=== PATIENT | female | born 1965 | race Caucasian/White ===

== ENCOUNTER 2024-12-24 06:59 | Inpatient (IN) | payer OTHER, SELFPAY ==
[2024-12-24] VITALS (10 sets, daily range): BP systolic 127–198; BP diastolic 59–96; PULSE 63–78; RESP 14–21; TEMP 36.3–36.8; O2SAT 88–97; BMI 55.5
--- NOTE | ~2024-12-24 | XR_ITS ---
EXAMINATION: XR CHEST CLINICAL INFORMATION: SOB, cough, COPD COMPARISON: None available. TECHNIQUE: 2 frontal and one lateral radiograph. FINDINGS: Heart size is enlarged. Central vascular prominence. Interstitial prominence and hazy opacities in bilateral lower lungs. Possible small bilateral pleural effusions. No pneumothorax. Thoracic spine spondylosis. Overlying monitoring leads. XR/XR chest 2V IMPRESSION: Interstitial prominence and bibasilar hazy opacities, could reflect mild pulmonary edema or represent inflammatory/infectious process. Possible small bilateral pleural effusions. Electronically signed by: Asael Payne MD 12/24/2024 09:11 AM [facility]
--- NOTE | 2024-12-24 07:11 | ED_ITS ---
HPI - General Adult General Chief complaint: General Medical Stated complaint: whole body swollen Time Seen by Provider: 12/24/24 07:09 Source: patient, RN notes reviewed and old records reviewed Mode of arrival: ambulatory Limitations: no limitations History of Present Illness ED Provider: CHOLO Faye HPI narrative: 59-year-old female with medical history of COPD, HTN presents to the ED due to total body swelling and increased shortness of breath. Patient reports she has noticed her abdomen becoming bigger with a sensation of tightness in the abdomen over the last week, with facial swelling most significant around the eyes, and increased SOB over the last 3 days. Patient reports moving positions, and walking exacerbates her SOB, she has been needing to sleep upright at night due to her shortness of breath and discomfort while laying down. Patient reports a chronic cough however denies any increased coughing or increased sputum production. Patient reports she has not taken her HTN medication in over 1 year due to lack of health insurance. Patient reports she started a new job and is waiting for enrollment. Denies sick contacts, recent travel, fevers, chills, abdominal pain, nausea, vomiting, headaches, visual changes, diarrhea, black/tarry stool, urinary symptoms MD complaint: swelling, SOB Related Data Allergies Allergy/AdvReac Type Severity Reaction Status Date / Time No Known Allergies (No Known Allergy Verified 12/24/24 07:07 Allergies*) Review of Systems 2 Review of Systems: Yes all other systems are reviewed and are negative PMFSH Past Medical History Attestation statement: The following information was validated with the patient. Source: old records reviewed and nursing notes reviewed Social History Social History Smoked in Last 30 Days: Yes Use of substances other than those prescribed or required for medical reasons: Yes Substance Use Type: Marijuana Substance Use Frequency: Daily Last Used Substance: Hours (ago) Any prior treatment program specific to substance use: No Advance Directives: No Advance Directives Information Provided: Yes Patient : No Physical Exam ED Vital Signs: Vital Signs - 24 hr 12/24/24 07:03 12/24/24 07:24 12/24/24 07:54 Temperature 97.5 F Pulse Rate 73 72 71 Respiratory Rate 20 14 17 Blood Pressure 198/95 H 179/86 H Pulse Oximetry 90 L 94 Oxygen Delivery Method Room Air Nasal Cannula Oxygen Flow Rate 1 12/24/24 08:44 Temperature Pulse Rate Respiratory Rate Blood Pressure 179/86 H Pulse Oximetry Oxygen Delivery Method Oxygen Flow Rate BMI result Body Mass Index 55.5 GENERAL APPEARANCE: ?AxOx4, no acute distress. HEENT: ?NC, AT. MMM. EOMI, clear conjunctiva, oropharynx clear. NECK: ?Supple without lymphadenopathy.? No stiffness or restricted ROM. HEART:? Normal rate and regular rhythm, normal S1/S2, no m/r/g LUNGS:? Diminished breath sounds throughout all lung mcginnis, mild expiratory ronchi ABDOMEN: ?Soft, nontender, nondistended with good bowel sounds heard. BACK: No CVAT, no obvious deformity. EXTREMITIES: ?Without cyanosis, clubbing or edema. NEUROLOGICAL: ?Grossly nonfocal. Alert and oriented, moving all 4 extremities. Observed to ambulate with normal gait. Skin: ?Warm and dry without any rash. Medications Administered Discontinued Medications Generic Name Dose Route Start Last Admin Trade Name Freq PRN Reason Stop Dose Admin Albuterol/Ipratropium 3 ml 12/24/24 07:51 12/24/24 07:59 Albuterol/Iprat 2.5/0.5mg 3 Ml Ampul.Neb INHALE 12/24/24 07:52 3 ml ONCE ONE Administration Furosemide 40 mg 12/24/24 08:33 12/24/24 08:44 Furosemide 40 Mg/4 Ml Vial IVPUSH 12/24/24 08:34 40 mg ONCE ONE Administration Protocol Methylprednisolone Sodium Succinate 60 mg 12/24/24 08:00 12/24/24 08:21 Methylprednisolone Sod Succ 125 Mg/2 Ml Vial IVPUSH 12/24/24 08:01 60 mg ONCE ONE Administration Medical Decision Making Medical Decision Making MDM Narrative: 59-year-old female presenting with increased swelling of face, and abdomen, and increased shortness of breath over the last week. SOB is worse when changing positions, ambulating, and is unable to lie flat at night. Has baseline cough, no increased cough or increased sputum production. Has medical history of hypertension however has not had access to medication over the past year due to lack of health insurance. VS on initial observation-BP 188/95, pulse rate of 73, respiratory rate of 20, afebrile with oral temp of 97.5?, O2 saturation 90% on room air. On physical exam lungs with diminished breath sounds throughout all lung mcginnis, mild expiratory ronchi, no increased work of breathing, no accessory muscle use noted, cardiac exam reveals normal rate and rhythm without murmurs/rubs/gallops, abdomen is very large, and rotund, no fluid wave however there is evidence of edema, lower extremities without pitting edema however has chronic venous stasis skin changes without weeping or hydrostatic bullae - Patient was placed on 2 L NC O2 saturation now at 94% EKG reveals normal sinus rhythm, without significant ST-elevation/depression, initial troponin 25.1 Labs without leukocytosis/leukopenia left shift of 75.1, no evidence of anemia, H and H stable, pro BNP of 1837.7, TSH WNL. VBG with elevated HCO3. Differential Diagnosis Differential Diagnoses: The differential diagnosis associated with the presentation includes CHF exacerbation COPD exacerbation Dysrhythmia Viral illness Admission/Observation Consideration of admission/observation: Escalation of care including admission/observation considered Lab Data MDM Lab Attestation statement: I reviewed the patient's lab results. 12/24/24 07:37 12/24/24 07:37 Labs: Lab Results 12/24/24 12/24/24 12/24/24 Range/Units 07:37 07:42 08:47 WBC 7.8 (4.8-10.8) X10*3/uL RBC 4.32 (4.20-5.50) X10*6/uL Hgb 12.3 (12.0-16.0) g/dl Hct 41.3 (37.0-47.0) % MCV 95.6 (80.0-98.0) fL MCH 28.5 (27.0-33.0) pg MCHC 29.8 L (31.0-35.0) g/dl RDW 15.9 (11.0-16.0) % Plt Count 220 (160-400) X10*3/uL MPV 9.0 L (9.4-12.3) fL Immature Gran % (Auto) 0.4 (0.0-0.4) % Neut % (Auto) 75.1 H (45-73) % Lymph % (Auto) 15.2 L (20-40) % [place] % (Auto) 6.7 (2-11) % Eos % (Auto) 2.2 (0-4) % Baso % (Auto) 0.4 (0-2) % Lymph # (Auto) 1.2 (1.2-4.9) X10*3/uL [place] # (Auto) 0.5 (0.1-1.2) X10*3/uL Eos # (Auto) 0.2 (0.0-0.4) X10*3/uL Baso # (Auto) 0.0 (0.0-0.2) X10*3/uL Abs Immat Gran (auto) 0.03 (0.00-0.03) X10*3/uL Absolute Neuts (auto) 5.8 (2.0-8.3) x10*3/uL Absolute Nucleated RBC 0.000 (0.0-0.012) X10*3/uL Nucleated RBC % (auto) 0.0 (0.0-0.2) /100WBC VBG pH 7.39 (7.32-7.43) VBG pCO2 63 mmHg VBG pO2 48 mmHg VBG HCO3 39 H (22-26) mmol/L VBG O2 Saturation 75.0 % VBG Base Excess 11.5 mmol/L Sodium 144 (135-145) mmol/L Potassium 3.9 (3.3-5.1) mmol/L Chloride 103 (96-108) mmol/L Carbon Dioxide 33 H (22-29) mmol/L Anion Gap 12 (12-20) BUN 19 H (9-16) mg/dL Creatinine 0.75 (0.5-1.4) mg/dL Estim Creat Clear Calc 111.2 Estimated GFR > 60 Random Glucose 170 H (60-115) mg/dL Calcium 8.7 (8.4-10.2) mg/dL Magnesium 2.0 (1.6-2.6) mg/dL Total Bilirubin 0.5 (0.0-1.0) mg/dL AST 25 (5-31) U/L ALT 15 (0-31) U/L Alkaline Phosphatase 83 (39-117) U/L Troponin I High Sens 25.1 H (<3.5-17.0) ng/L NT-Pro-B Natriuret Pep 1837.7 H (<300) pg/mL Total Protein 7.0 (6.5-8.0) g/dL Albumin 3.4 L (3.5-5.0) g/dL TSH 2.01 (0.32-4.0) uIU/mL COVID-19 (JUVENTINO) Negative (Negative) COVID-19 Clin Com See Note Influenza Type A (LAUREN) Negative (Negative) Influenza Type B (LAUREN) Negative (Negative) Influenza A & B Note See Note Independent Interpretation I performed an independent interpretation of an: EKG Interpretation: I personally interpreted the EKG Discharge Plan Discharge Print Language: German
--- NOTE | 2024-12-24 07:23 | ECG_ITS ---
Test Reason : sob Blood Pressure : */* mmHG Vent. Rate : 72 BPM Atrial Rate : 72 BPM P-R Int : 174 ms QRS Dur : 82 ms QT Int : 376 ms P-R-T Axes : 52 -27 3 degrees QTcB Int : 411 ms Normal sinus rhythm Low voltage QRS Cannot rule out Anteroseptal infarct , age undetermined Abnormal ECG When compared with ECG of 09-Feb-2018 14:09, QRS axis Shifted left Minimal criteria for Anteroseptal infarct are now Present ST now depressed in Inferior leads Nonspecific T wave abnormality now evident in Lateral leads Referred By: Romeo Faye Electronically Signed By: JENNIFER MCDERMOTT MD
[2024-12-24 07:45] LABS: MANUAL DIFF FLAG NO; Venous Blood Gas Refer to POC result
[2024-12-24 07:46] LABS: VBG HCO3 39 mmol/L (22-26); VBG O2 % Saturation 75.0 %
[2024-12-24 07:48] LABS: Hematocrit 41.3 % (37.0-47.0); Hemoglobin 12.3 g/dl (12.0-16.0); Imm Gran Abs Auto 0.03 X10*3/uL (0.00-0.03); Imm Gran Pct Auto 0.4 % (0.0-0.4); Lymphocytes Absolute Auto 1.2 X10*3/uL (1.2-4.9); Mean Corpuscular HGB Conc 29.8 g/dl (31.0-35.0); Mean Corpuscular Hemoglobin 28.5 pg (27.0-33.0); Mean Corpuscular Volume 95.6 fL (80.0-98.0); NRBC Abs Auto 0.000 X10*3/uL (0.0-0.012); NRBC Pct Auto 0.0 /100WBC (0.0-0.2); Platelet Count 220 X10*3/uL (160-400); Red Blood Count 4.32 X10*6/uL (4.20-5.50); White Blood Count 7.8 X10*3/uL (4.8-10.8)
[2024-12-24] MEDS: Albuterol/Iprat 2.5/0.5MG 3 ML AMPUL.NEB INHALE (07:59)
[2024-12-24 08:00] LABS: Alanine Aminotransferase 15 U/L (0-31); Albumin Level 3.4 g/dL (3.5-5.0); Alkaline Phosphatase 83 U/L (39-117); Anion Gap 12 (12-20); Aspartate Amino Transferase 25 U/L (5-31); Blood Urea Nitrogen 19 mg/dL (9-16); Calcium 8.7 mg/dL (8.4-10.2); Carbon Dioxide 33 mmol/L (22-29); Chloride 103 mmol/L (96-108); Creatinine Clr Calc Pharmacy 111.2; Estimated Glomerular Filt Rate > 60; Magnesium 2.0 mg/dL (1.6-2.6); Potassium 3.9 mmol/L (3.3-5.1); Sodium 144 mmol/L (135-145); Total Protein 7.0 g/dL (6.5-8.0)
[2024-12-24 08:05] LABS: COVID-19 Test Negative (Negative); IDNOW Serial# 58CA691E
[2024-12-24 08:07] LABS: NT Pro B Type Natriuretic Pept 1837.7 pg/mL (<300)
[2024-12-24 08:08] LABS: IDNOW Serial# 55D5AD1C; Influenza B2 Negative (Negative)
[2024-12-24] MEDS: Furosemide 40 MG/4 ML VIAL IVPUSH ×2 (08:44→17:30)
--- OUTSIDE RECORDS SUMMARY | 2024-12-24 08:59 | XMS_ITS | Clinical Summary ---
Author Organization [facility] Address [address] [place] [address] Care Team Providers Care Lead Technologist In Cytogenetics Name Role Phone Mica Sanchez SONAM Primary Care Provider [phone] Source Comments PLEASE NOTE, if this patient is a minor, it may be UNLAWFUL to discuss sensitive information that is contained in these records (such as FAMILY PLANNING, MENTAL HEALTH or SUBSTANCE ABUSE) with the minor patient's parent or other person without the patient's specific authorization.[facility] Allergies No known active allergies Medications triamcinolone (KENALOG) 0.1 % ointmentIndicati ons:Dermatitis Apply topically 2 (two) times daily. 15 g 3 6 Active blood pressure monitorIndicatio ns:Essential hypertension DX . Uncontrolled blood pressure 1 Kit 0 6 Active ibuprofen (ADVIL,MOTRIN) 600 mg tabletIndication s:Cellulitis of lower extremity, unspecified laterality Take 1 Tab by mouth every 6 (six) hours as needed for pain 30 Tab 0 6 Active SENNA PLUS 8.6-50 mg per tabletIndication s:Constipation, unspecified constipation type Take 1 Tab by mouth once daily. 30 Tab 3 7 Active labetalol (NORMODYNE) 200 mg tabletIndication s:Essential hypertension Take 1 Tab by mouth 2 (two) times daily 60 Tab 5 8 Active amLODIPine (NORVASC) 10 mg tabletIndication s:Essential hypertension Take 1 Tab by mouth once daily 30 Tab 3 8 Active lisinopril (PRINIVIL,ZESTRI L) 40 mg tabletIndication s:Essential hypertension Take 1 Tab by mouth once daily 30 Tab 3 8 Active ondansetron HCl (ZOFRAN) 4 mg tabletIndication s:Nausea Take 1 Tab by mouth every 4 to 6 (four to six) hours as needed for nausea 15 Tab 8 Active omeprazole (PRILOSEC) [address] capsuleIndicatio ns:Gastroesophag eal reflux disease, esophagitis presence not specified Take 1 Cap by mouth every morning before breakfast Do not crush or chew. 30 Cap 3 9 Active Active Problems Problem Noted Date Diagnosed Date Obesity, Class II, BMI 35-39.9 12/14/2014 Essential hypertension 12/14/2014 Marijuana use 12/14/2014 Overview (12/14/2014): As per medical records from [facility] Resolved Problems Problem Noted Date Diagnosed Date Resolved Date Cellulitis of head except face 04/03/2017 05/17/2017 Cigar smoker unmotivated to quit 12/14/2014 05/17/2017 Immunizations Immunization Administration Dates Next Due PNEUMOCOCCAL POLYSACCHARIDE PPV23 (Pneumovax 23) 05/17/2017 TDAP 05/17/2017 Family History Medical History Relation Name Comments Heart Problems Brother Diabetes Father Heart Problems Mother Relation Name Status Comments Brother Father Mother Other Sister Social History Tobacco Use Types Packs/Day Years Used Date Smoking Tobacco: Every Day Cigarettes Smokeless Tobacco: Never Tobacco Cessation:Ready to Q uit: Yes; Counseling Given: Yes Comments:30 years smoking history Alcohol Use Standard Drinks/Week Comments Yes 0 (1 standard drink = 0.6 oz pur e alcohol) Occasional Social Connections Answer Date Recorded Social Connections and Isolation 0 10/05/2018 Financial Resource Strain Answer Date R ecorded Financial Resource Strain 0 2018 Stress Answer Date Recorded Stress 0 10/05/2018 Physical Activity Answer Date Recorded Physical Activity 0 10/05/2018 Food Insecurity Answer Date Recorded Food 0 10/05/2018 Transportation Needs Answer Date Record ed Transportation 0 10/05/2018 Housing Stability Answer Date Recorded Housing 0 10/05/2018 Safety and Environment Answer Date Leonard rded Safety 0 10/05/2018 Utilities Answer Date Recorded Utilities 0 10/05/2018 Employment Answer Date Recorded Employment 0 10/05/2018 Comments No Sex and Gender Information Value Date Recorded Sex Assigned at Female 04/03/2017 6:56 AM PST Legal Sex Female 11:14 AM PDT Gender Identity Female 04/03/2017 6:56 AM PST Sexual Orientation Don't know 04/03/2017 6: 56 AM PST Last Filed Vital Signs Vital Sign Reading Time Taken Comments Blood Pressure 148/96 12/16/2017 9:14 AM EST Pulse 99 12/16/2017 9:14 AM EST Temperature 36.5 C (97.7 F) 12/16/2017 9:14 AM EST Respiratory Rate 20 12/16/2017 9:14 AM EST Oxygen Saturation 95% 04/02/2017 10:29 AM EST Inhaled Oxygen Concentration - - Weight 106.1 kg (234 lb) 12/16/2017 9:14 AM EST Height 162.6 cm (5' 4 ) 05/30/2015 3:42 PM EDT Body Mass Index 40.17 05/30/2015 3:42 PM EDT Plan of Treatment Not on file Care Teams Lead Technologist In Cytogenetics Relationship Specialty Start Date End Date Mica Sanchez FNP [address] [place] [address] PCP - General Family Medicine, CONSULTATIVE SALES ASSOCIATE 10/07/15
--- OUTSIDE RECORDS SUMMARY | 2024-12-24 09:00 | XMS_ITS | Clinical Summary ---
Author Organization [facility] Address [address] [place] [address] Phone Care Team Providers Care Director Business Travel Name Role Phone Physician, Pcp Unknown Primary Care Provider [place] vailable Allergies No known active allergies Medications lisinopriL (PRINIVIL,ZESTR IL) 20 mg tablet Take 1 tablet (20 mg total) by mouth 1 (one) time each day. 30 each 5 Active albuterol HFA (PROAIR HFA ; PROVENTIL HFA ; VENTOLIN HFA) 90 mcg/actuation inhaler Inhale 2 puffs by mouth every 4 (four) hours if needed for wheezing. 1 each 5 Active fluticasone propion-salmete roL (ADVAIR DISKUS) 100-50 mcg/dose diskus inhaler Inhale 1 puff by mouth 2 (two) times a day. Rinse mouth with water after use to reduce aftertaste and incidence of candidiasis. Do not swallow. 1 each 5 05/28/19 26 Active Medical History Medical History Date Comments Hypertension Social History Tobacco Use Types Packs/Day Years Used Date Smoking Tobacco: Never Assessed Comments Unknown Sex and Gender Information Value Date Recorded Sex Assigned at Not on file Legal Sex Female 8:48 AM EST Gender Identity Not on file Sexual Orientation Not on file Obstetrics History Last Filed Vital Signs Vital Sign Reading Time Taken Comments Blood Pressure 189/85 05/27/2024 4:16 PM EDT Pulse 70 05/27/2024 4:16 PM EDT Temperature 36.4 C (97.5 F) 05/27/2024 4:16 PM EDT Respiratory Rate 20 05/27/2024 4:16 PM EDT Oxygen Saturation 95% 05/27/2024 4:16 PM EDT Inhaled Oxygen Concentration - - Weight 113 kg (250 lb) 05/27/2024 12:41 PM EDT Height 157.5 cm (5' 2 ) 05/27/2024 12:41 PM EDT Body Mass Index 45.73 05/27/2024 12:41 PM EDT Plan of Treatment Health Maintenance Due Date Last Done Comments Breast Cancer Screening 1965 Colorectal Cancer Screening: Colonoscopy 1965 Hepatitis B Vaccines (1 of 3 - 19+ 3-dose series) 11/21/1986 Cervical Cancer Screening: Pap Smear 11/21/1988 RSV Immunization Adult Patients (1 - Risk 50-74 years 1-dose series) 11/21/2017 Zoster Vaccines (1 of 2) 11/21/2017 Pneumococcal Vaccine: 50+ Years (2 of 2 - PCV) 05/17/2018 05/17/2017 HIV Screening 01/14/2022 Hepatitis C Screening 01/14/2022 Social Influencers of Health Screening 01/14/2022 Cholesterol Screening (Lipid Panel) 05/17/2022 05/17/2017 Depression Screening 02/12/2024 COVID-19 Vaccine ( season) 2024 01/30/2022, 01/16/2021, 06/22/2020, Additional history exists Influenza Vaccine (#1) 2024 Hypertension/CHF/CAD Annual BMP Blood Test 05/27/2025 05/27/2024 DTaP,Tdap,and Td Vaccines (2 - Td or Tdap) 05/18/2027 05/17/2017 HIB Vaccines Aged Out No longer eligi ble based on patient's age to complete this topic HPV Vaccines Aged Out No longer eligi ble based on patient's age to complete this topic Hepatitis A Vaccines Aged Out No long er eligible based on patient's age to complete this topic IPV Vaccines Aged Out No longer eligi ble based on patient's age to complete this topic MMR Vaccines Aged Out No longer eligi ble based on patient's age to complete this topic Meningococcal ACWY Vaccine Aged Out N o longer eligible based on patient's age to complete this topic Meningococcal B Vaccine Aged Out No l onger eligible based on patient's age to complete this topic RSV Immunization Patients Under 20 months Aged Out No longer eligible based on patient's age to complete this topic Varicella Vaccines Aged Out No longer eligible based on patient's age to complete this topic Procedures Procedure Name Priority Date/Time Associated Diagnosis Comments COMPREHENSIVE METABOLIC PANEL STAT 05/27/2024 1:02 PM EDT from Last 3 Months or Most Recently Relevant to Health Maintenance Results * Comprehensive metabolic panel (05/27/2024 1:02 PM EDT) Sodium 137 133 - 145 mmol/L LAB CHEMISTRY METHOD 05/27/2024 1:40 PM [facility] Potassium 3.8 3.5 - 5.5 mmol/L LAB CHEMISTRY METHOD 05/27/2024 1:40 PM [facility] Chloride 103 96 - 110 mmol/L LAB CHEMISTRY METHOD 05/27/2024 1:40 PM [facility] CO2 27 21 - 32 mmol/L LAB CHEMISTRY METHOD 05/27/2024 1:40 PM [facility] Anion Gap 7 3 - 11 LAB CHEMISTRY METHOD 05/27/2024 1:40 PM [facility] Glucose 87 70 - 100 mg/dL LAB CHEMISTRY METHOD 05/27/2024 1:40 PM [facility] BUN 25 5 - 25 mg/dL LAB CHEMISTRY METHOD 05/27/2024 1:40 PM [facility] Creatinine 0.81 0.50 - 1.10 mg/dL LAB CHEMISTRY METHOD 05/27/2024 1:40 PM [facility] eGFR 85 >=60 mL/min/1. 73m2 LAB CHEMISTRY METHOD 05/27/2024 1:40 PM [facility] Comment:Calculation based on the Chronic Kidney Disease Epidemiology Collaboration (CKD-EPI) equation refit without adjustment for race. BUN/Creatinine Ratio 30.9 LAB CHEMISTRY METHOD 05/27/2024 1:40 PM EDT [facility] Calcium 8.9 8.5 - 10.5 mg/dL LAB CHEMISTRY METHOD 05/27/2024 1:40 PM EDT [facility] AST (SGOT) 21 10 - 42 unit/L LAB CHEMISTRY METHOD 05/27/2024 1:40 PM T [facility] ALT (SGPT) 28 10 - 60 unit/L LAB CHEMISTRY METHOD 05/27/2024 1:40 PM EDT [facility] Alkaline Phosphatase 91 42 - 121 unit/L LAB CHEMISTRY METHOD 05/27/2024 1:40 PM EDT [facility] Total Protein 7.3 6.0 - 8.0 g/dL LAB CHEMISTRY METHOD 05/27/2024 1:40 PM EDT [facility] Albumin 3.2 3.2 - 5.0 g/dL LAB CHEMISTRY METHOD 05/27/2024 1:40 PM EDT [facility] Total Bilirubin 0.5 0.0 - 1.4 mg/dL LAB CHEMISTRY METHOD 05/27/2024 1:40 PM EDT [facility] Blood Venous blood specimen / Unknown Venipuncture / Unknown 05/27/2024 1:02 PM EDT 05/27/2024 1:09 PM EDT us Tre Mclaughlin MD LAB BLOOD ORDERABLES Final Result [facility] [address] [place] [address], from Last 3 Months or Most Recently Relevant to Health Maintenance Insurance MEDICAID - [place] Care Teams Director Business Travel Relationship Specialty Start Date End Date Physician, Pcp Unknown PCP - General 07/28/24
[2024-12-24 09:36] LABS: Troponin-I High Sensitivity 25.1 ng/L (<3.5-17.0)
[2024-12-24 11:10] LABS: Troponin-I High Sensitivity 28.5 ng/L (<3.5-17.0)
--- NOTE | 2024-12-24 12:04 | PHA.MEDREC ---
Pharmacy Consult ? Medication Reconciliation Pharmacy has completed the medication reconciliation. Spoke to patient at bedside, she takes no prescription or OTC meds.
--- NOTE | 2024-12-24 12:13 | P.HPHOSP_ITS ---
History of Present Illness Date of Service: 12/24/24 Attending physician on admission: Mi Riggs Chief Complaint: shortness of breath This is a 59 year old female with a history of hypertension who presents to the emergency department with shortness of breath. Patient reports 3 day history of shortness of breath especially with exertion. She has noticed abdominal swelling, leg edema and swelling of her face and around her eyes. She reports orthopnea and paroxysmal nocturnal dyspnea. She does have a dry cough. She denies any associated fever, chest pain, recent sick contacts or palpitations. In the emergency department she was noted to be hypoxic and was placed on 2 L nasal cannula with improvement of her oxygen saturation. Lab work was significant for elevated BNP at 1837. Troponins were elevated but flat at 25, 28. Chest x-ray showed concern for pulmonary edema with possible small bilateral pleural effusions. Patient was treated with IV ceftriaxone, IV Solu- Medrol as well as IV Lasix. She reports that she has urinated a large volume 3 times since receiving Lasix and her breathing is becoming less labored although she still feels short of breath with movement. She denies any known history of CHF. She does have a history of hypertension although she has not seen a primary care provider or taken any medication for her blood pressure in several years. Of note she reports being seen in [facility] ED 1 month ago at which time she was told she may have fluid issues and possibly COPD, but was not discharged home with any medication per her report. Review of Systems 2 Review of Systems: Yes all other systems are reviewed and are negative Constitutional: Constitutional: Denies chills and Denies fever(s) Cardiovascular: Cardiovascular: Denies chest pain, Denies palpitations, Reports dyspnea on exertion, Reports orthopnea and Reports paroxysmal nocturnal dyspnea Respiratory: Respiratory: Reports dyspnea on exertion Endocrine: Endocrine: Denies palpitations [facility] Medical History Hypertension Social History Smoked in Last 30 Days: Yes Use of substances other than those prescribed or required for medical reasons: Yes Substance Use Type: Marijuana Substance Use Frequency: Daily Last Used Substance: Hours (ago) Any prior treatment program specific to substance use: No Advance Directives: No Advance Directives Information Provided: Yes Patient : No Meds Allergies Allergy/AdvReac Type Severity Reaction Status Date / Time No Known Allergies (No Known Allergy Verified 12/24/24 07:07 Allergies*) Physical Exam 2 Vital Signs and Narrative: Vital Signs: Last Vital Signs Temp 98.2 F 12/24/24 10:38 Pulse 68 12/24/24 10:38 Resp 21 H 12/24/24 10:38 BP 173/95 H 12/24/24 10:38 Pulse Ox 96 12/24/24 10:38 O2 Del Method Room Air 12/24/24 10:38 O2 Flow Rate 1 12/24/24 10:38 BMI result Body Mass Index 55.5 Const: General: cooperative, alert and awake Nutritional Appearance: obese Orientation/consciousness: patient oriented x3 HEENT: Other: poor dentition Resp: Other: wheezing anterior lung mcginnis; diminished breath sounds b/l; mild tachypnea Cardio: Other: JVD difficult to assess due to body habitus GI: Inspection: No distended Palpation (GI): Soft to palpation Neuro: General: patient oriented x3, moves all extremities and CN's II-XI intact bilaterally Extrem: Other: b/l leg edema Results Labs 12/24/24 07:37 12/24/24 07:37 Labs: Laboratory Results - last 24 hr 12/24/24 12/24/24 12/24/24 07:37 07:42 08:47 MCV 95.6 MCH 28.5 MCHC 29.8 L RDW 15.9 Plt Count 220 MPV 9.0 L Immature Gran % (Auto) 0.4 Neut % (Auto) 75.1 H Lymph % (Auto) 15.2 L [place] % (Auto) 6.7 Eos % (Auto) 2.2 Baso % (Auto) 0.4 Lymph # (Auto) 1.2 [place] # (Auto) 0.5 Eos # (Auto) 0.2 Baso # (Auto) 0.0 Abs Immat Gran (auto) 0.03 Absolute Neuts (auto) 5.8 Absolute Nucleated RBC 0.000 Nucleated RBC % (auto) 0.0 VBG pH 7.39 VBG pCO2 63 VBG pO2 48 VBG HCO3 39 H VBG O2 Saturation 75.0 VBG Base Excess 11.5 Anion Gap 12 Estim Creat Clear Calc 111.2 Estimated GFR > 60 Random Glucose 170 H Lactic Acid Calcium 8.7 Magnesium 2.0 Total Bilirubin 0.5 AST 25 ALT 15 Alkaline Phosphatase 83 Troponin I High Sens 25.1 H NT-Pro-B Natriuret Pep 1837.7 H Total Protein 7.0 Albumin 3.4 L TSH 2.01 COVID-19 (JUVENTINO) Negative COVID-19 Clin Com See Note Influenza Type A (LAUREN) Negative Influenza Type B (LAUREN) Negative Influenza A & B Note See Note 12/24/24 12/24/24 09:55 10:39 MCV MCH MCHC RDW Plt Count MPV Immature Gran % (Auto) Neut % (Auto) Lymph % (Auto) [place] % (Auto) Eos % (Auto) Baso % (Auto) Lymph # (Auto) [place] # (Auto) Eos # (Auto) Baso # (Auto) Abs Immat Gran (auto) Absolute Neuts (auto) Absolute Nucleated RBC Nucleated RBC % (auto) VBG pH VBG pCO2 VBG pO2 VBG HCO3 VBG O2 Saturation VBG Base Excess Anion Gap Estim Creat Clear Calc Estimated GFR Random Glucose Lactic Acid 1.4 Calcium Magnesium Total Bilirubin AST ALT Alkaline Phosphatase Troponin I High Sens 28.5 H NT-Pro-B Natriuret Pep Total Protein Albumin TSH COVID-19 (JUVENTINO) COVID-19 Clin Com Influenza Type A (LAUREN) Influenza Type B (LAUREN) Influenza A & B Note Imaging Radiologist's Impressions: Impressions Chest X-Ray 12/24/24 08:55 IMPRESSION: Interstitial prominence and bibasilar hazy opacities, could reflect mild pulmonary edema or represent inflammatory/infectious process. Possible small bilateral pleural effusions. Electronically signed by: Asael Payne MD 12/24/2024 09:11 AM [facility] [place] Assessment and Plan (1) Acute CHF: Status: Acute (2) Hypertension: Status: Acute Plan this is a 59-year-old female with history of hypertension who presents to the emergency department with dyspnea found to have concerns for acute CHF Shortness of breath concern for acute CHF with MCLEAN, orthopnea, leg edema, elevated BNP and edema on chest x-ray. likely due to uncontrolled HTN IV Lasix 40 mg b.i.d. echocardiogram low sodium diet, monitor Is&Os; monitor electrolytes tele monitoring cardiology consultation uncontrolled hypertension will need antihypertensive eventually, for now will treat with lasix and follow bp closely elevated cardiac enzymes likely due to demand from CHF and elevated blood pressure echocardiogram and Cardiology consultation ordered as above probable undiagnosed COPD will need formal PFTs outpatient wheezing likely due to above CHF prn breathing treatments morbid obesity BMI 55.5 likely contributing to respiratory symptoms tobacco dependence Smoking cessation advised NRT dvt ppx - lovenox Patient will likely require 2 midnight stay in the hospital for management of acute CHF requiring IV Lasix, specialist evaluation and further workup Quality Stroke Does the patient have a stroke diagnosis?: No VTE Prior VTE?: No VTE Risk Level:: Medical - moderate - high VTE Device Contraindication: Treatment Not Indicated VTE Drug Contraindication: N/A - Med Ordered
[2024-12-24 15:53] LABS: Appearance Urine Clear; Glucose Urine UA Negative (Negative); PH >= 9.0 (5.0-9.0); Specific Gravity - Urine 1.015 (1.005-1.025); UMIC TRIGGER UACC YES
--- NOTE | 2024-12-24 16:00 | CA_ITS ---
Transthoracic Echocardiogram Patient (Last, First, Middle): Cecilia Urbina M Gender: Female Date of : 1965 Age: 59 Procedure Date: 12/24/2024 Procedure Type: Transthoracic Echocardiogram Location: [facility] [place] Height: 157.48 cm Weight: 137.44 kg BSA: 2.28 m2 Heart Rate: 76 bpm BP: 183 / 96 mmHg Branding Machine Operator: LAURITA Referring MD: Yin PATRICIO B2B Sales Manager: Bola Lemon MD Symptoms: new CHF Study Quality: Technically Difficult ECG Rhythm: Sinus Conclusions: - 1. Technically limited study 2. Low normal LV ejection fraction with grade 2 diastolic dysfunction 3. Mild aortic stenosis by gradient Findings Procedure Information Contrast agent, definity, is being given per protocol without apparent complications. Left Ventricle The left ventricle was not well visualized. Normal left ventricular cavity size. There is mildly increased left ventricular wall thickness. The left ventricular systolic function is low normal. The visually estimated ejection fraction is between 50-55%. Regional wall motion abnormalities can not be excluded due to suboptimal endocardial definition. Spectral Doppler is indicative of a pseudonormal filling pattern. E/E prime ratio is >15, consistent with elevated filling pressures. Evidence suggests grade II (moderate) diastolic dysfunction. Right Ventricle The right ventricle was not well visualized. Atria The left atrium is mildly dilated. Interatrial shunt cannot be excluded. The right atrium was not well visualized. Aortic Valve The aortic valve was not well visualized. There is mild aortic valve stenosis. The peak aortic gradient is 28 mmHg.The mean gradient is 14 mmHg. The aortic valve area is 1.98 cm2. There is no aortic valve regurgitation. Mitral Valve The mitral valve was not well visualized. There is trace mitral valve regurgitation. There is no mitral valve stenosis. Pulmonic Valve The pulmonic valve was not well visualized. Tricuspid Valve The tricuspid valve was not well visualized. Tricuspid regurgitation envelope is inadequate for calculation of right ventricular systolic pressure. Indeterminate right atrial pressure. Great Vessels The aorta was not well visualized. The pulmonary artery was not well visualized. Venous The inferior vena cava was not well visualized. Pericardium/Pleural The pericardium was not well visualized. Prior Study Comparison No prior study available for comparison. Measurements 2D Linear Measurements IVSd: 1.36 0.6-0.9/0.6-1.0 cm LVIDd: 5.53 3.9-5.3/4.2-5.9 cm LVIDd Index: 2.43 2.4-3.2/2.2-3.1 cm/m2 LVIDs: 4.07 2.0-3.6 cm LVPWd: 1.16 0.7-1.1 cm LV Mass: 366.65 67-162/88-224 g LV Mass Index: 160.81 43-95/49-115 g/m2 LVOT Diam: 2.20 3.0+(-)1.3 cm 2D Systolic Function EF 4C: 49.60 >55% EF 2C: 53.10 >55% EF BiP: 51.60 >55% Mitral Valve MV Pk E: 1.42 MV PK A: 1.26 MV Decel Time: 217.00 E/A: 1.10 E'Lateral: 5.87 E'Medial: 6.09 E/E' Med: 23.30 E/E' Lat: 24.20 PHT: 63.00 MVA PHT: 3.49 Decel Sargent: 6.56 Aortic Valve AoV Pk Andrea: 2.63 AoV Mn Andrea: 1.75 AoV VTI: 0.51 AoV Pk Grad: 28.00 Aov Mn Grad: 14.00 LINCOLN Cont.VTI: 1.98 LVOT LVOT Pk Andrea: 1.43 LVOT Mn Andrea: 0.90 LVOT VTI: 0.27 LVOT Pk Grad: 8.00 LVOT Mn Grad: 4.00 LVOT Diam: 2.20 LVOT Area: 3.80 Diastolic Function MV Pk E: 1.42 MV Pk A: 1.26 E/A: 1.10 E'Medial: 6.09 E/E' Med: 23.30 E' Laterial: 5.87 E/E' Lat: 24.20 Right Ventricle TAPSE (mm): 19.10 TVS' Andrea: 12.10 Great Vessels Aorta Sinus of Valsalva: 3.21 2.0-3.5 cm Ao Asc: 3.60 2.1-3.4 cm Updated in Other Vendor System with Status of Final Bola Lemon MD electronically signed on 12/24/2024 4:24:30 PM with status of Final
[2024-12-24] MEDS: Magnesium Sulfate/H2O 2 GM/50 ML PIGGYBACK IV (17:30)
[2024-12-24] MEDS: 0.9 % Sodium Chloride Flush 3 ML SYRINGE IVFLUSH (17:33)
--- NOTE | 2024-12-25 05:24 | PM.EVENT ---
Event Note Date of Service: 12/25/24 Event Note: 5:21 am POSITIVE blood culture 1 set out of 2 GRAM POSITIVE COCCI IN CLUSTERS Vancomycin IV started Time Spent With Patient Time: Total time managing care of this patient today ____ minutes.
[2024-12-25] MEDS: vancomycin/NS 2,000 MG/500 ML PLAST..BAG 250 MG IV (06:38)
[2024-12-25 06:46] LABS: Anion Gap 11 (12-20); Blood Urea Nitrogen 18 mg/dL (9-16); Calcium 8.7 mg/dL (8.4-10.2); Carbon Dioxide 34 mmol/L (22-29); Chloride 102 mmol/L (96-108); Creatinine Clr Calc Pharmacy 111.2; Estimated Glomerular Filt Rate > 60; Potassium 3.9 mmol/L (3.3-5.1); Sodium 143 mmol/L (135-145)
--- NOTE | 2024-12-25 07:08 | PHA.PROG ---
Admission Date/Time: December 24, 2024 11:44 Indication: bACTEREMIA Weight in k.7 kg Adjusted body weight in K.14 KG Patterson body weight in K.1 kg Obesity Dosing Indication % IBW: 274% Serum Creatinine - Last 168 Hours 12/24/24 12/25/24 07:37 06:12 Creatinine 0.75 0.75 Estimated CrCl and GFR - Last 168 Hours 12/24/24 12/25/24 07:37 06:12 Estim Creat Clear Calc 111.2 111.2 Estimated GFR > 60 > 60 Vancomycin Loading Dose: 2000 mg Current Vancomycin Dosing Regimen: 1000 mg Q12H Date and Time for next Vancomycin Level to be drawn: 12/26 @ 1700 Pharmacist Comments on Vancomycin Plan: Patient receive an adequate load dose Maiteance dose to start 12/25 @ 1900. Predicted AUC 505 with a trough of 15 Level to be drawn prior to the 4th dose on 12/26 @ 1700 Pharamcy will monitor renal function daily Jayne Mccoy PharmD Vancomycin dosing will take advantage of globalscholar.com as a clinical decision support tool that uses Bayesian modeling to calculate individual patient's pharmacokinetic parameters and forecast the patient's drug concentration time course with the target goal AUC 24 range of 400 - 600 mg/L/hr.
[2024-12-25 07:50] VITALS: PULSE 72; RESP 20; TEMP 36.5; O2SAT 94
[2024-12-25 08:05] VITALS: BP 138/80
[2024-12-25] MEDS: Furosemide 40 MG/4 ML VIAL IVPUSH ×2 (09:09→18:01)
[2024-12-25] MEDS: 0.9 % Sodium Chloride Flush 3 ML SYRINGE IVFLUSH ×2 (09:12→21:43)
--- NOTE | 2024-12-25 10:36 | PM.CNCAR ---
History of Present Illness History of Present Illness Date of Service: 12/25/24 Requesting physician: Saqib Brizuela Consult reason: congestive heart failure Chief complaint: SoB Narrative: I was consulted to see Jake and in cardiology consultation today for decompensated congestive heart failure as possible COPD exacerbation. Patient is 59 year female with prior history of hypertension although she says she lost her insurance from pandemic time in although she has been working for the last 4 years she has not been able to get on insurance. She has been did not take any medications for high blood pressure recently she went to emergency room at [facility] because of progressive symptoms of shortness of breath as well as generalized swelling and cough. She was seen in the emergency room given Lasix and then discharged without being admitted. She then remained continuously symptomatic with abdominal distension, leg swelling as well as some altered mental status at home and progressive worsening shortness of breath. She came to the emergency room here was diagnose with congestive heart failure. She also has chronic productive cough which is suggestive of underlying COPD although she does not have an official diagnose. She denies any exertional chest pain although she has limited activity level. She works at [employer] full-time and says with her usual work when she is standing in his not labor intensive does not have much symptoms. Denies any prolonged palpitation irregular heartbeat. Echocardiogram done yesterday was limited with shows normal LV ejection fraction with grade 2 diastolic dysfunction with mild . Review of Systems Constitutional: Constitutional: Reports no additional constitutional complaints Eyes: Eyes: Reports no additional eye complaints Cardiovascular: Cardiovascular: Reports Abdominal Distension, Denies chest pain, Denies rapid heart rate, Reports leg edema, Denies lightheadedness, Denies Loss of Consciousness, Denies palpitations, Reports dyspnea on exertion and Reports orthopnea Respiratory: Respiratory: Reports cough, Reports excessive phlegm production and Reports dyspnea on exertion Gastrointestinal: Gastrointestinal: Reports no additional gastrointestinal complaints Musculoskeletal: Musculoskeletal: Reports no additional musculoskeletal complaints Neurologic: Reports system reviewed and no additional complaints, except as documented Psychiatric: Psychiatric: Reports no additional psychiatric complaints Endocrine: Endocrine: Denies palpitations PMFSH Past Medical History Medical History Hypertension Social History Social History Household Members: Family Housing: Apartment Do you presently have visiting nurse or other home services: No Patient Tobacco Use Status: Current someday Tobacco user Cigarettes Per Day: 6 Smoked in Last 30 Days: Yes Patient Interested in Nicotine Replacement: No Patient Given Instructions on How to Stop Smoking: No Use of substances other than those prescribed or required for medical reasons: Yes Substance Use Type: Marijuana Substance Use Frequency: Daily Last Used Substance: Hours (ago) Currently Displaying Signs/Symptoms of Drug Intoxication Withdrawal: No Any prior treatment program specific to substance use: No Have you been hit, kicked, punched, or otherwise hurt by someone within the past year? If so, by whom?: No Is there a partner from a previous relationship who is making you feel unsafe now?: No Are you made to feel afraid or neglected: No Advance Directives: No Advance Directives Information Provided: Yes Do you have a plan to hurt others: No Plan Recently lost weight without trying: No Patient : No Meds Allergies Allergy/AdvReac Type Severity Reaction Status Date / Time No Known Allergies (No Known Allergy Verified 12/24/24 07:07 Allergies*) Active Medications: Current Medications Acetaminophen (Acetaminophen 325 Mg Tablet) 650 mg PO Q6H PRN PRN Reason: Pain, Mild 1-3,fever,headache Albuterol Sulfate (Albuterol Sulfate (0.083%) 2.5 Mg/3 Ml Vial.Neb) 2.5 mg INHALE Q4H PRN PRN Reason: Shortness of Breath/Wheezing Calcium Carbonate (Calcium Carbonate 750 Mg Tab.Chew) 750 mg PO Q4H PRN PRN Reason: Heartburn Enoxaparin Sodium (Enoxaparin Sodium 40 Mg/0.4 Ml Syringe) 40 mg SUBCUT Q24H [facility] Last Admin: 12/24/24 13:30 Dose: 40 mg Furosemide (Furosemide 40 Mg/4 Ml Vial) 40 mg IVPUSH BID@0900,1800 [facility]; Protocol Last Admin: 12/25/24 09:09 Dose: 40 mg Vancomycin HCl 1,000 mg/ (Sodium Chloride) 270 mls @ 270 mls/hr IV Q12H [facility] Magnesium Hydroxide (Milk Of Magnesia 30 Ml Oral.Susp) 30 ml PO DAILY PRN PRN Reason: Constipation Melatonin (Melatonin 3 Mg Tablet) 6 mg PO BEDTIME PRN PRN Reason: Insomnia Nicotine (Nicotine 14 Mg Patch.Td24) 14 mg TRANSDERMA DAILY [facility] Last Admin: 12/25/24 09:13 Dose: Not Given Ondansetron HCl (Ondansetron Hcl 4 Mg/2 Ml Vial) 4 mg IVPUSH Q8H PRN PRN Reason: Nausea and Vomiting Pharmacy Consult (Consult Rx Vancomycin Dosing) 1 each MISCELLANE DAILY PRN PRN Reason: Consult order Sodium Chloride (0.9 % Sodium Chloride Flush 3 Ml Syringe) 3 ml IVFLUSH QSHIFT [facility] Last Admin: 12/25/24 09:12 Dose: 3 ml Physical Exam Vital Signs: Vital Signs: Last Vital Signs Temp 97.7 F 12/25/24 07:50 Pulse 72 12/25/24 07:50 Resp 20 12/25/24 07:50 BP 138/80 12/25/24 08:05 Pulse Ox 94 12/25/24 07:50 O2 Del Method Nasal Cannula 12/25/24 07:50 O2 Flow Rate 3 12/25/24 07:50 BMI result Body Mass Index 55.5 Const: General: cooperative, comfortable, no acute distress, alert and awake Nutritional Appearance: obese morbidly obese Orientation/consciousness: patient oriented x3 HEENT: Head: Yes normocephalic and Yes atraumatic Neck: Neck: Yes trachea midline, Yes supple and Yes JVD Resp: Effort & Inspection: normal respiratory effort Auscultation: no rales, no wheezes and diminished lung sounds Cardio: Jugular venous distension: JVD Rate: regular rate Rhythm: regular rhythm Heart sounds: S1 normal heart sound present, S2 normal heart sound present, no click, no gallops and Murmur heart sound present systolic GI: Inspection: Yes distended Auscultation: normal bowel sounds Skin: General skin exam: no rashes or lesions noted Neuro: General: patient oriented x3 and no focal motor deficits Extrem: General: No clubbing, No cyanosis and Yes edema Psych: Appearance: grossly normal Objective Labs and Meds 12/24/24 07:37 12/25/24 06:12 Lab results: Laboratory Results - last 24 hr 12/24/24 12/24/24 12/25/24 10:39 15:25 06:10 Hold Purple Top SEE NOTE Sodium Potassium Chloride Carbon Dioxide Anion Gap BUN Creatinine Estim Creat Clear Calc Estimated GFR Random Glucose Calcium Troponin I High Sens 28.5 H Urine Color Yellow Urine Appearance Clear Urine pH >= 9.0 Ur Specific [place] 1.015 Urine Protein 100 (2+) H Urine Glucose (UA) Negative Urine Ketones Negative Urine Blood Negative Urine Nitrite Negative Ur Leukocyte Esterase Negative Urine RBC 0-2 Urine WBC 0-5 Ur Squamous Epith Cells 0-2 Urine Bacteria None Seen Hyaline Casts 0-2 12/25/24 06:12 Hold Purple Top Sodium 143 Potassium 3.9 Chloride 102 Carbon Dioxide 34 H Anion Gap 11 L BUN 18 H Creatinine 0.75 Estim Creat Clear Calc 111.2 Estimated GFR > 60 Random Glucose 118 H Calcium 8.7 Troponin I High Sens Urine Color Urine Appearance Urine pH Ur Specific [place] Urine Protein Urine Glucose (UA) Urine Ketones Urine Blood Urine Nitrite Ur Leukocyte Esterase Urine RBC Urine WBC Ur Squamous Epith Cells Urine Bacteria Hyaline Casts Assessment and Plan (1) Acute CHF: Status: Acute Acute decompensated congestive heart failure in this middle-aged woman related to diastolic dysfunction 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 This will need to be worked up as an outpatient. Had a very long discussion with the patient about her diagnose is and management plan and prognosis. She requires continued diuresis and appears to be fluid overloaded. Continue the same. Strict intake and output chart needs to be pursued. I would add Jardiance 10 mg to regimen to help with the heart failure management and also add spironolactone 25 mg to regimen for both blood pressure control as well as heart failure management. Continue monitor renal function as well as electrolytes and closely monitor her blood pressure. Outpatient workup for sleep apnea. She also probably has significant COPD from her smoking and that needs to be worked up as an outpatient and treated as outpatient. Management was discussed in details. She said due to her social situation she has to sign out against medical advice, I did recommend her against it to help us manage her acute condition so that she may avoid repeat hospitalization. She would want to think about it. Will continue to follow with you if patient is still in the hospital Procedures Date of Service Date of Service: 12/25/24
[2024-12-25 10:55] VITALS: BP 150/76; PULSE 62; RESP 20; TEMP 37.1; O2SAT 94
--- NOTE | 2024-12-25 13:25 | MHC.CM.PN ---
Pt. lives with her children, she does not have health insurance or a PCP, referral submitted to financial counselor. Pt. does not use DME, HCP discussed, she declined to complete one. DCP: home, self care. CM to follow for DC needs.
--- NOTE | 2024-12-25 13:46 | MHC.CM.PN ---
Patient is listed as self pay; an email referral has been sent to [facility] [employer].
--- NOTE | 2024-12-25 13:57 | HO.PM.IMPN ---
Subjective Subjective Date of Service: 12/25/24 Interval History: f/u on acute on heart failure still sob, wanted to leave AMA but has since changed her mind Physical Exam Vital Signs: Vital Signs: Last Vital Signs Temp 98.8 F 12/25/24 10:55 Pulse 62 12/25/24 10:55 Resp 20 12/25/24 10:55 BP 150/76 H 12/25/24 10:55 Pulse Ox 94 12/25/24 10:55 O2 Del Method Nasal Cannula 12/25/24 10:55 O2 Flow Rate 2 12/25/24 10:55 BMI result Body Mass Index 55.5 Const: Other: General: AO X 3, no acute distress, visibly short of breath Resp: decrease air movment, accessory muslc use CVS: S1,S2,RRR, leg edeam kellen GI: +BS, NT, no distention Skin: No rash Neuro: motor grossly intact Psych: appropriate affect Objective Data Active Medications Acetaminophen (Acetaminophen 325 Mg Tablet) 650 mg PO Q6H PRN PRN Reason: Pain, Mild 1-3,fever,headache Albuterol Sulfate (Albuterol Sulfate (0.083%) 2.5 Mg/3 Ml Vial.Neb) 2.5 mg INHALE Q4H PRN PRN Reason: Shortness of Breath/Wheezing Calcium Carbonate (Calcium Carbonate 750 Mg Tab.Chew) 750 mg PO Q4H PRN PRN Reason: Heartburn Enoxaparin Sodium (Enoxaparin Sodium 40 Mg/0.4 Ml Syringe) 40 mg SUBCUT Q24H [facility] Last Admin: 12/24/24 13:30 Dose: 40 mg Documented By: CHRISTINE Furosemide (Furosemide 40 Mg/4 Ml Vial) 40 mg IVPUSH BID@0900,1800 [facility]; Protocol Last Admin: 12/25/24 09:09 Dose: 40 mg Documented By: JM Vancomycin HCl 1,000 mg/ (Sodium Chloride) 270 mls @ 270 mls/hr IV Q12H [facility] Magnesium Hydroxide (Milk Of Magnesia 30 Ml Oral.Susp) 30 ml PO DAILY PRN PRN Reason: Constipation Melatonin (Melatonin 3 Mg Tablet) 6 mg PO BEDTIME PRN PRN Reason: Insomnia Nicotine (Nicotine 14 Mg Patch.Td24) 14 mg TRANSDERMA DAILY [facility] Last Admin: 12/25/24 09:13 Dose: Not Given Documented By: JM Non-Admin Reason: Patient Refused Ondansetron HCl (Ondansetron Hcl 4 Mg/2 Ml Vial) 4 mg IVPUSH Q8H PRN PRN Reason: Nausea and Vomiting Pharmacy Consult (Consult Rx Vancomycin Dosing) 1 each MISCELLANE DAILY PRN PRN Reason: Consult order Sodium Chloride (0.9 % Sodium Chloride Flush 3 Ml Syringe) 3 ml IVFLUSH QSHIFT [facility] Last Admin: 12/25/24 09:12 Dose: 3 ml Documented By: JM Labs 12/24/24 07:37 12/25/24 06:12 Labs: Laboratory Results - last 24 hr 12/24/24 12/25/24 12/25/24 15:25 06:10 06:12 Hold Purple Top SEE NOTE Anion Gap 11 L Estim Creat Clear Calc 111.2 Estimated GFR > 60 Random Glucose 118 H Calcium 8.7 Urine Color Yellow Urine Appearance Clear Urine pH >= 9.0 Ur Specific [place] 1.015 Urine Protein 100 (2+) H Urine Glucose (UA) Negative Urine Ketones Negative Urine Blood Negative Urine Nitrite Negative Ur Leukocyte Esterase Negative Urine RBC 0-2 Urine WBC 0-5 Ur Squamous Epith Cells 0-2 Urine Bacteria None Seen Hyaline Casts 0-2 Microbiology Microbiology Results: Microbiology 12/24/24 10:06 Blood Culture - Preliminary Blood - Venous No growth after 24 hours. 12/24/24 09:55 Blood Culture - Preliminary Blood - Venous Prelim: GPC Gram Stain only Assessment and Plan (1) Hypertension: Status: Acute (2) Acute CHF: Status: Acute Plan 59-year-old female with history of hypertension who presents to the emergency department with dyspnea found to have concerns for acute CHF Shortness of breath d/t acute diastolic chf continue IV Lasix, monitor I/O echo show preserved EF adding aldactone and Jardiance elevated cardiac enzymes likely due to demand from CHF and elevated blood pressure will need further work up on outpatient basis cardiology following uncontrolled hypertension Lisinopril 10 probable undiagnosed COPD will need formal PFTs outpatient wheezing likely due to above CHF prn breathing treatments Probable MARY outpatient sleep study morbid obesity BMI 55.5 likely contributing to respiratory symptoms tobacco dependence Smoking cessation advised NRT dvt ppx - lovenox Patient will likely require 2 midnight stay in the hospital for management of acute CHF requiring IV Lasix, specialist evaluation and further workup Quality Stroke Does the patient have a stroke diagnosis?: No VTE Prior VTE?: No VTE Risk Level:: Medical - moderate - high VTE Device Contraindication: Treatment Not Indicated VTE Drug Contraindication: N/A - Med Ordered
--- NOTE | 2024-12-25 14:47 | MHC.CM.PN ---
Financial counselor informed CM that pt. is active with [employer].
[2024-12-25 15:59] VITALS: BP 119/56; PULSE 69; RESP 20; TEMP 36.6; O2SAT 92
[2024-12-25 19:44] VITALS: BP 129/60; PULSE 67; RESP 18; TEMP 37.1; O2SAT 92
--- NOTE | 2024-12-25 20:13 | PC.NURSE ---
Vancomycin infusion paused d/t no IV access.
[2024-12-25 23:46] VITALS: BP 126/58; PULSE 64; RESP 18; TEMP 37.1; O2SAT 92
[2024-12-26 03:46] VITALS: BP 158/76; PULSE 75; RESP 18; TEMP 37.1; O2SAT 92
[2024-12-26 06:00] VITALS: BMI 55.7
[2024-12-26 07:01] VITALS: BP 148/71; PULSE 58; RESP 18; TEMP 36.4; O2SAT 93
[2024-12-26 07:56] LABS: Creatinine Clr Calc Pharmacy 113.0; Estimated Glomerular Filt Rate > 60
[2024-12-26] MEDS: Furosemide 40 MG/4 ML VIAL IVPUSH (09:41)
[2024-12-26] MEDS: 0.9 % Sodium Chloride Flush 3 ML SYRINGE IVFLUSH (09:42)
--- NOTE | 2024-12-26 10:46 | P.PNCA_ITS ---
Subjective Subjective Date of Service: 12/26/24 Principal diagnosis: Decompensated congestive heart failure, COPD. Interval history: Patient says she is breathing a lot better. She says his leg edema has much improved although still persistent. Overall negative balance only chart it at - 500 cc which appears to be mild adequate. Review of Systems Constitutional: Reports no additional constitutional complaints Cardiovascular: Denies chest pain, Reports leg edema (Improved), Denies Loss of Consciousness and Reports dyspnea (Improved) Respiratory: Reports cough, Reports excessive phlegm production and Reports dyspnea (Improved) Genitourinary: Reports no additional female genitourinary complaints Musculoskeletal: Reports no additional musculoskeletal complaints Reports system reviewed and no additional complaints, except as documented Psychiatric: Reports no additional psychiatric complaints Physical Exam Vital Signs: Last Vital Signs Temp 97.6 F 12/26/24 07:01 Pulse 58 12/26/24 07:01 Resp 18 12/26/24 07:01 BP 148/71 H 12/26/24 07:01 Pulse Ox 93 12/26/24 07:01 O2 Del Method Nasal Cannula 12/26/24 07:01 O2 Flow Rate 1 12/26/24 07:01 BMI result Body Mass Index 55.7 Const General: cooperative, comfortable, no acute distress, alert and awake Nutritional Appearance: obese morbidly obese Orientation/consciousness: patient oriented x3 HEENT Head: Yes normocephalic and Yes atraumatic Neck Neck: Yes trachea midline, Yes supple and Yes JVD Resp Effort & Inspection: normal respiratory effort Auscultation: no rales, no wheezes and diminished lung sounds Cardio Jugular venous distension: JVD Rate: regular rate Rhythm: regular rhythm Heart sounds: S1 normal heart sound present, S2 normal heart sound present, no click, no gallops and Murmur heart sound present systolic GI Inspection: Yes distended Auscultation: normal bowel sounds Skin General skin exam: no rashes or lesions noted Neuro General: patient oriented x3 and no focal motor deficits Extrem General: No clubbing, No cyanosis and Yes edema Psych Appearance: grossly normal Objective Labs and Meds 12/24/24 07:37 12/26/24 06:53 Lab results: Laboratory Results - last 24 hr 12/26/24 06:53 Creatinine 0.74 Estim Creat Clear Calc 113.0 Estimated GFR > 60 Progress Note: A&P Assessment and plan (1) Acute CHF: Status: Acute Assessment and Plan: Acute congestive heart failure which appears to be diastolic in nature from longstanding untreated hypertension as well as possibly obesity related heart disease as well as possibly on diagnose sleep apnea. Will need further workup from that perspective. Will also need a stress test to evaluate for myocardial ischemia. Patient wants to leave and willing to leave AMA. I think she is not completely diuresed and risk for heart failure readmissions high. She also need social care consult to set up for outpatient insurance as well as medications. If she has been discharged and was discharged on bumetanide 2 mg daily with the additional as needed. Also on spironolactone 25 mg daily. Jardiance without insurance might be an issue for her. This was discussed. She will need workup as outpatient to follow up as outpatient this was discussed with her. I would check BNP today prior to discharge. In the long run complete smoking cessation was discussed. Will need workup for sleep apnea as well as aggressive management of her obesity. Will follow if patient is still in the hospital. Time Spent With Patient Time: Total time managing care of this patient today ____ minutes. Progress Note: Quality Stroke Does the patient have a stroke diagnosis?: No Procedures Date of Service Date of Service: 12/26/24
[2024-12-26 11:06] VITALS: BP 144/65; PULSE 62; RESP 20; TEMP 37.1; O2SAT 92
--- NOTE | 2024-12-26 12:33 | MHC.CM.PN ---
CM INFORMED PT IS CONCERNED ABOUT COST OF CARE/PRESCRIPTIONS SHE DOES NOT HAVE HEALTH INSURANCE AT THIS TIME PER CM NOTE FROM YESTERDAY, [facility] [place] AND CONFIRMED PT IS ACTIVE WITH [facility] [employer] CM MET WITH PT TO INFORM HER OF INSURANCE COVERAGE, SHE STATES THAT EXPLAINS WHY [employer] SENT HER A MESSAGE THAT HER RX WAS READY SHE UNDERSTANDS SHE WILL NEED TO FOLLOW UP OUTPATIENT INDICATED IN DC INSTRUCTIONS AND THAT THE RN WILL REVIEW IT WITH HER AND ANSWER ANY QUESTIONS PT WILL DC HOME TODAY WITH NO SERVICES
--- NOTE | 2024-12-26 13:18 | PM.DS ---
DS: Providers Provider Date of Service: 12/26/24 Date of admission: 12/24/24 11:44 Date of discharge: 12/26/24 Primary care physician: None Physician Consults: 12/24/24 12:12 Consult to Cardiology Routine Consulting Provider: [facility] [place] [facility] [place] [facility] Reason for consultation: new CHF Has provider been notified: No DS: Diagnosis Discharge Diagnosis (1) Acute CHF: Status: Acute DS: Summary Hospital Course Hospital Course: Admission hpi Chief Complaint: shortness of breath This is a 59 year old female with a history of hypertension who presents to the emergency department with shortness of breath. Patient reports 3 day history of shortness of breath especially with exertion. She has noticed abdominal swelling, leg edema and swelling of her face and around her eyes. She reports orthopnea and paroxysmal nocturnal dyspnea. She does have a dry cough. She denies any associated fever, chest pain, recent sick contacts or palpitations. In the emergency department she was noted to be hypoxic and was placed on 2 L nasal cannula with improvement of her oxygen saturation. Lab work was significant for elevated BNP at 1837. Troponins were elevated but flat at 25, 28. Chest x-ray showed concern for pulmonary edema with possible small bilateral pleural effusions. Patient was treated with IV ceftriaxone, IV Solu-Medrol as well as IV Lasix. She reports that she has urinated a large volume 3 times since receiving Lasix and her breathing is becoming less labored although she still feels short of breath with movement. She denies any known history of CHF. She does have a history of hypertension although she has not seen a primary care provider or taken any medication for her blood pressure in several years. Of note she reports being seen in [facility] ED 1 month ago at which time she was told she may have fluid issues and possibly COPD, but was not discharged home with any medication per her report. hospital course: Patient was admitted for managemen acute respiratory failure due to chf and likey undiagnosed copd and chronic smoking. She was treated with Iv diuertics and saw cardiology, had an echocardiogram showing EF of 55 to 60 percent. Additional medical mangement include Aldactone 25 mg annie, adding Jardiance and Lisinopril 10 mg. Will follow up with cardiology, smoking cessation is encouraged, she will also benefit from sleep study on outpatient basis. Initial BNP 1800 now 1600 Time Attestation Discharge Coordination Time (in mins): 45 Quality: Safe Use of Opioids Does Pt have an Active Cancer Diagnosis on the Problem List?: No Quality: Stroke Does the patient have a stroke diagnosis?: No Physical Exam Vital Signs: Vital Signs: Last Vital Signs Temp 98.8 F 12/25/24 10:55 Pulse 62 12/25/24 10:55 Resp 20 12/25/24 10:55 BP 150/76 H 12/25/24 10:55 Pulse Ox 94 12/25/24 10:55 O2 Del Method Nasal Cannula 12/25/24 10:55 O2 Flow Rate 2 12/25/24 10:55 BMI result Body Mass Index 55.5 DS: Data Data Completed and Pending Labs on day of discharge: Laboratory Results - last 24 hr 12/24/24 12/25/24 12/25/24 15:25 06:10 06:12 Hold Purple Top SEE NOTE Sodium 143 Potassium 3.9 Chloride 102 Carbon Dioxide 34 H Anion Gap 11 L BUN 18 H Creatinine 0.75 Estim Creat Clear Calc 111.2 Estimated GFR > 60 Random Glucose 118 H Calcium 8.7 Urine Color Yellow Urine Appearance Clear Urine pH >= 9.0 Ur Specific [place] 1.015 Urine Protein 100 (2+) H Urine Glucose (UA) Negative Urine Ketones Negative Urine Blood Negative Urine Nitrite Negative Ur Leukocyte Esterase Negative Urine RBC 0-2 Urine WBC 0-5 Ur Squamous Epith Cells 0-2 Urine Bacteria None Seen Hyaline Casts 0-2 Preliminary micro results at discharge 12/24/24 09:55 Blood Culture - Preliminary Blood - Venous Prelim: GPC Gram Stain only Discharge Plan Discharge Anticipated Discharge Date/Time: 12/26/24 13:25 Patient Disposition: Home, Self-Care Discharge Diagnosis: Acute Diastolic heart failure Referrals: Physician,None [Primary Care Provider, Medical] - 1 Week Discharge Medications: New bumetanide 2 mg tablet 2 mg PO DAILY Qty: 30 0RF spironolactone [Aldactone] 25 mg tablet 25 mg PO DAILY Qty: 30 0RF lisinopril 10 mg Tablet 10 mg PO DAILY Qty: 90 0RF Protocol: Hold for SBP< HOLD for SBP < : 90 Jardiance 10 mg tablet 10 mg PO DAILY Qty: 90 0RF Discharge Orders: Discharge Order (Routine); Ordered 12/26/24 Ordered By: Saqib Brizuela Diet: Advance to usual diet Activity on Discharge: As tolerated Stand Alone Forms: Patient Portal Discharge page Print Language: Citizen Of [place] Care Plan Goals: recovery from heart failure Health Concerns: acute heart failue HTN Plan of Treatment: take Bumex and Aldactone as directed follow up with your doctor in a week, follow up with heart doctor Assessment: see above
[2024-12-26 13:31] LABS: Anion Gap 16 (12-20); Carbon Dioxide 33 mmol/L (22-29); Chloride 99 mmol/L (96-108); Potassium 4.0 mmol/L (3.3-5.1); Sodium 144 mmol/L (135-145)
[2024-12-26 13:42] LABS: NT Pro B Type Natriuretic Pept 1602.0 pg/mL (<300)
[2024-12-26 15:22] VITALS: PULSE 64; RESP 18; TEMP 36.9; O2SAT 91
== END 2024-12-26 16:02 | disposition home or self-care (01) | DRG 194 ==
LOC: HO.ED 10:01 → HO.EDOVER 11:53 → HO.IMC 12:38
PROVIDERS: Internal Medicine; Admitting Provider Physician Assistant Medical; Emergency Provider Emergency Medicine; Visit Provider Internal Medicine
DX: I11.0 Hypertensive heart disease with heart failure (principal); J96.01 Acute respiratory failure with hypoxia; J44.1 Chronic obstructive pulmonary disease with (acute) exacerbation; I50.31 Acute diastolic (congestive) heart failure; Z68.43 Body mass index [BMI] 50.0-59.9, adult; E66.01 Morbid (severe) obesity due to excess calories; F17.210 Nicotine dependence, cigarettes, uncomplicated; G47.33 Obstructive sleep apnea (adult) (pediatric); Z71.3 Dietary counseling and surveillance; Z71.6 Tobacco abuse counseling; Z20.822 Contact with and (suspected) exposure to COVID-19; Z79.899 Other long term (current) drug therapy
CPT/HCPCS: 36415; 71046; 80048; 80051; 80053; 81001; 81003; 82565; 82803; 83605; 83735; 83880; 84443; 84484; 85025; 87040; 87147; 87205; 87502; 87635; 93005; 93306; 94640; 99285; J0696; J1650; J1938; J2919; J3373; J3374; J3475; Q9957

== ENCOUNTER → 2024-12-24 07:21 | Outpatient (BNV) | payer OTHER, SELFPAY | PROVIDERS: Emergency Provider Emergency Medicine; Visit Provider Radiology Diagnostic Ultrasound | DX: R91.8 Other nonspecific abnormal finding of lung field (principal) | CPT/HCPCS: 71046 ==

== ENCOUNTER → 2024-12-24 07:23 | Outpatient (BNV) | payer OTHER, SELFPAY | PROVIDERS: Admitting Provider Physician Assistant Medical; Emergency Provider Emergency Medicine; Visit Provider Internal Medicine Cardiovascular Disease | DX: R94.31 Abnormal electrocardiogram [ECG] [EKG] (principal); R06.02 Shortness of breath; I35.0 Nonrheumatic aortic (valve) stenosis | CPT/HCPCS: 93010; 93306 ==

== ENCOUNTER → 2024-12-24 11:44 | Outpatient (BNV) | payer OTHER, SELFPAY | PROVIDERS: Admitting Provider Physician Assistant Medical; Emergency Provider Emergency Medicine; Visit Provider Physician Assistant Medical | DX: I50.9 Heart failure, unspecified (principal); I10 Essential (primary) hypertension | CPT/HCPCS: 99223; 99233; 99499 ==

== ENCOUNTER → 2024-12-24 11:44 | Outpatient (BNV) | payer OTHER, SELFPAY | PROVIDERS: Admitting Provider Physician Assistant Medical; Emergency Provider Emergency Medicine; Visit Provider Internal Medicine Cardiovascular Disease | DX: I50.9 Heart failure, unspecified (principal) | CPT/HCPCS: 99222; 99233 ==